=== PATIENT | female | born 1970 | race Caucasian/White ===

== ENCOUNTER 2021-03-16 05:17 | Emergency (ER) | payer BC, OTHER ==
[~2021-03-16] VITALS: Ht 165.1 cm; Wt 82.0 kg
[2021-03-16 06:59] LABS: CLARITY URINE CLEAR (CLEAR); COLOR URINE YELLOW (YELLOW); KETONES URINE TRACE (NEGATIVE); LEUKOCYTE ESTERASE URINE 1+ (NEGATIVE); NITRITE URINE NEGATIVE (NEGATIVE); OCCULT BLOOD URINE TRACE (NEGATIVE); PROTEIN URINE NEGATIVE (NEGATIVE); SPECIFIC GRAVITY URINE 1.027 (1.005-1.030); UROBILINOGEN URINE 0.2 E.U./dL (0.2-1.0)
[2021-03-16] MEDS ORDERED: KETOROLAC 30MG/ML VIAL IV ONE (07:00)
[2021-03-16] MEDS ORDERED: SODIUM CHLORIDE 0.9% 1,000 ML IV ONE (07:00)
[2021-03-16] MEDS ORDERED: ONDANSETRON HCL 4MG/2ML INJ IV ONE (07:00)
[2021-03-16] MEDS ORDERED: CEFTRIAXONE 1 G PREMIX 50 ML IV ONE (07:45)
[2021-03-16 08:30] LABS: BASOPHILS % 0.3 % (0.0-2.0); EOSINOPHILS % 0.1 % (0.0-5.0); HEMATOCRIT. 37.5 % (36.0-48.0); HEMOGLOBIN. 12.4 g/dL (12.0-16.0); LYMPHOCYTES % 8.8 % (20.0-50.0); MEAN CORPUSCULAR HEMOGLOBIN 28.2 pg (28.0-32.0); MEAN CORPUSCULAR VOLUME 84.9 fL (81.0-99.0); MEAN PLATELET VOLUME 8.4 fl (7.4-10.4); MONOCYTES % 2.4 % (2.0-8.0); NEUTROPHILS % 88.4 % (40.0-76.0); PLATELET 258 x1000/uL (130-400); RED BLOOD CELL COUNT 4.41 mill/uL (4.2-5.4); RED CELL DISTRIBUTION WIDTH 13.7 % (11.6-14.6)
[2021-03-16 08:38] LABS: CHLORIDE 103 mEq/L (98-107)
[2021-03-16 08:41] LABS: PROTHROMBIN TIME 10.3 sec (9.6-11.0)
[2021-03-16] MEDS ORDERED: CEPH250C2 MT (11:00)
[2021-03-16] MEDS ORDERED: ONDA4TAB5 MT (11:00)
[2021-03-16 11:20] VITALS: BP 147/73
== END 2021-03-16 11:21 | disposition home or self-care (01) ==
LOC: ER 05:17
DX: N20.0 Calculus of kidney (principal); N39.0 Urinary tract infection, site not specified; N23 Unspecified renal colic; E11.9 Type 2 diabetes mellitus without complications
CPT/HCPCS: 36415; 74176; 80053; 81003; 83690; 85025; 85610; 96361; 96374; 96375; 99285; J0696; J1885; J2405; J7030